=== PATIENT | female | born 1995 | race American Indian/Alaskan Native ===

== ENCOUNTER 2020-12-07 10:26 | Emergency (ER) | payer MEDICAID ==
--- NOTE | 2020-12-07 11:03 | Event Note ---
ED Screening Note Date of service: 12/07/20 Time: 11:03 ED Screening Note: [id number] vaginal bleeding yesterday. 7 weeks , no ultrasound during . This initial assessment/diagnostic orders/clinical plan/treatment(s) is/are subject to change based on patients health status, clinical progression and re- assessment by fellow clinical providers in the ED. Further treatment and workup at subsequent clinical providers discretion. Patient/guardian urged not to elope from the ED as their condition may be serious if not clinically assessed and managed. Initial orders include: cbc, HCG quant, urinalysis, transvaginal ultrasound.
[2020-12-07 12:17] LABS: Bilirubin,Urine NEG (Negative); Blood,Urine MOD (Negative); Color,Urine Yellow (Yellow); Mucus,Urine 3+ /HPF
--- NOTE | 2020-12-07 12:26 | Ultrasound Report ---
ULTRASOUND OBSTETRIC INDICATION: 7 weeks with vaginal bleeding. TECHNIQUE: Transvaginal. COMPARISON: None available. FINDINGS: GESTATIONAL SAC: Well-defined oval shape and intrauterine in location. YOLK SAC: No significant abnormality. EMBRYO/FETUS: No significant abnormality. - [place]-Rump Length = 0.6 cm = 6 weeks, 3 day(s). - Heart Rate = 121 beats per minute. ADNEXA: No significant abnormality. FREE FLUID: Small amount along the cul-de-sac. ADDITIONAL FINDINGS: An area of probable subchorionic hemorrhage is seen immediately adjacent to the gestational sac measuring 1.3 x 1.2 x 0.3 cm. Along the lower uterine segment there is distention of the endometrial canal by hyperechoic contents, likely representing blood products. IMPRESSION: 1. Single, living intrauterine with estimated sonographic age of 6 weeks, 6 3 day(s). 2. Subchorionic hemorrhage as above with additional probable blood products along the lower uterine s egment endometrial canal. Signer Name: Kameron Canela MD Signed: 12/07/2020 12:22 PM Workstation Name: [id number]
--- NOTE | 2020-12-07 12:26 | Ultrasound Report ---
ULTRASOUND OBSTETRIC INDICATION: 7 weeks with vaginal bleeding. TECHNIQUE: Transvaginal. COMPARISON: None available. FINDINGS: GESTATIONAL SAC: Well-defined oval shape and intrauterine in location. YOLK SAC: No significant abnormality. EMBRYO/FETUS: No significant abnormality. - [place]-Rump Length = 0.6 cm = 6 weeks, 3 day(s). - Heart Rate = 121 beats per minute. ADNEXA: No significant abnormality. FREE FLUID: Small amount along the cul-de-sac. ADDITIONAL FINDINGS: An area of probable subchorionic hemorrhage is seen immediately adjacent to the gestational sac measuring 1.3 x 1.2 x 0.3 cm. Along the lower uterine segment there is distention of the endometrial canal by hyperechoic contents, likely representing blood products. IMPRESSION: 1. Single, living intrauterine with estimated sonographic age of 6 weeks, 6 3 day(s). 2. Subchorionic hemorrhage as above with additional probable blood products along the lower uterine s egment endometrial canal. Signer Name: Kameron Canela MD Signed: 12/07/2020 12:22 PM Workstation Name: [id number]
[2020-12-07 12:32] LABS: Basophils % (Auto) 0.7 % (0.0-1.8); Eosinophils # (Auto) 0.1 K/mm3 (0.0-0.4); Eosinophils % (Auto) 0.9 % (0.0-4.3); Hematocrit 39.2 % (30.3-42.9); Hemoglobin 13.3 gm/dl (10.1-14.3); Lymphocytes # (Auto) 2.5 K/mm3 (1.2-5.4); Lymphocytes % (Auto) 44.9 % (13.4-35.0); Mean Corpuscular HGB Conc 34 % (30-34); Mean Corpuscular Volume 84 fl (79-97); Monocytes # (Auto) 0.6 K/mm3 (0.0-0.8); Monocytes % (Auto) 11.7 % (0.0-7.3); Platelet Count 217 K/mm3 (140-440); Red Blood Count 4.65 M/mm3 (3.65-5.03); Red Cell Distribution Width 13.2 % (13.2-15.2)
--- NOTE | 2020-12-07 12:40 | Emergency Department Report ---
ED General Adult HPI - General Chief complaint: Vaginal Bleeding Stated complaint: 7 WKS /BLEEDING Time Seen by Provider: 12/07/20 12:32 Source: patient Mode of arrival: Ambulatory Limitations: No Limitations - History of Present Illness Initial comments: Patient is a 25-year-old female presenting with chief complaint of vaginal bleeding. She states that her last menstrual period was October 24 and she is approximately 7 weeks . She has not yet seen [facility] [facility]. She is a G2, P1. She states that last evening she had gradual onset of vaginal spotting which became heavier overnight and is now improving. Denies any pelvic/abdominal pa in, fevers, urinary complaints. Symptoms are mild to moderate, no alleviating or exacerbating factors. - Related Data Allergies Allergy/AdvReac Type Severity Reaction Status Date / Time No Known Allergies Allergy Unverified 12/07/20 10:27 ED Review of Systems ROS: Stated complaint: 7 WKS /BLEEDING Other details as noted in HPI Comment: All other systems reviewed and negative Genitourinary: as per HPI ED Past Medical Hx - Past Medical History Previous Medical History?: No - Surgical History Past Surgical History?: No - Social History Smoking Status: Never Smoker Substance Use Type: None ED Physical Exam - General Limitations: No Limitations General appearance: alert, in no apparent distress - Head Head exam: Present: atraumatic, normocephalic - Eye Eye exam: Present: normal appearance - ENT ENT exam: Present: mucous membranes moist - Neck Neck exam: Present: normal inspection - Respiratory Respiratory exam: Present: normal lung sounds bilaterally. Absent: respiratory distress - Cardiovascular Cardiovascular Exam: Present: regular rate, normal rhythm. Absent: systolic murmur, diastolic murmur, rubs, gallop - GI/Abdominal GI/Abdominal exam: Present: soft, normal bowel sounds. Absent: distended, tend erness - Extremities Exam Extremities exam: Present: normal inspection - Back Exam Back exam: Present: normal inspection - Neurological Exam Neurological exam: Present: alert, oriented X3 - Psychiatric Psychiatric exam: Present: normal affect, normal mood - Skin Skin exam: Present: warm, dry, intact, normal color. Absent: rash ED Course Vital Signs 12/07/20 10:29 Temperature 98.4 F Pulse Rate 113 H Respiratory 19 Rate Blood Pressure 132/62 O2 Sat by Pulse 99 Oximetry ED Medical Decision Making - Lab Data Result diagrams: 12/07/20 11:43 - Radiology Data Radiology results: report reviewed Single viable intrauterine 6 weeks 6 days, subchorionic bleed - Medical Decision Making Patient presented with vaginal bleeding in early . Denies abdominal pain. Bleeding has improved at this time. Exam is normal. Labs obtained. Ultrasound shows single viable intrauterine with likely subchorionic bleed. Discussed findings with patient and recommend strict pelvic rest and close [employer] [facility] follow-up. Discussed return precautions. Patient is Rh-, RhoGam work-up ordered. - Differential Diagnosis Threatened miscarriage, miscarriage, ectopic Critical care attestation.: If time is entered above; I have spent that time in minutes in the direct care of this critically ill patient, excluding procedure time. ED Disposition Clinical Impression: Threatened miscarriage Subchorionic bleed Qualifiers: Fetus number: single or unspecified fetus Trimester: first trimester Qualified Code(s): O41.8X10 - Other specified disorders of amniotic fluid and membranes, first trimester, not applicable or unspecified Disposition: DC-01 TO HOME OR SELFCARE Is pt being admited?: No Condition: Good Instructions: Subchorionic Hematoma, Threatened Miscarriage Referrals: PRIMARY CARE, [Primary Care Provider] - 3-5 Days MO LOPEZ MD [Staff Physician] - 3-5 Days Time of Disposition: 13:45
[2020-12-07 16:49] VITALS: BP 132/76
== END 2020-12-07 14:45 | disposition home or self-care (01) ==
LOC: ED 10:26
DX: O20.0 Threatened abortion (principal); O20.8 Other hemorrhage in early pregnancy; Z3A.01 Less than 8 weeks gestation of pregnancy
CPT/HCPCS: 36415; 76801; 76817; 81001; 84702; 85025; 86850; 86900; 86901; 99284; J2790

== ENCOUNTER 2020-12-16 16:16 | Emergency (ER) | payer MEDICAID ==
[2020-12-16] MEDS ORDERED: SODIUM CHLORIDE 0.9% 1000 ML 1,000 ML IV ONE ×2 (18:13→21:44)
[2020-12-16 19:24] LABS: Alanine Aminotransferase 130 units/L (7-56); Albumin 4.7 g/dL (3.9-5); BUN/Creatinine Ratio 15; Blood Urea Nitrogen 12 mg/dL (7-17); Calcium 9.7 mg/dL (8.4-10.2); Hemolysis Index 3
[2020-12-16 19:28] LABS: Basophils % (Auto) 0.6 % (0.0-1.8); Eosinophils # (Auto) 0.1 K/mm3 (0.0-0.4); Eosinophils % (Auto) 0.9 % (0.0-4.3); Hematocrit 42.8 % (30.3-42.9); Hemoglobin 14.5 gm/dl (10.1-14.3); Lymphocytes # (Auto) 3.2 K/mm3 (1.2-5.4); Lymphocytes % (Auto) 45.5 % (13.4-35.0); Mean Corpuscular HGB Conc 34 % (30-34); Mean Corpuscular Volume 85 fl (79-97); Monocytes # (Auto) 0.8 K/mm3 (0.0-0.8); Monocytes % (Auto) 11.1 % (0.0-7.3); Platelet Count 235 K/mm3 (140-440); Red Blood Count 5.04 M/mm3 (3.65-5.03); Red Cell Distribution Width 12.7 % (13.2-15.2)
[2020-12-16 19:28] LABS: Bacteria,Urine 1+ /HPF (Negative); Bilirubin,Urine SM (Negative); Blood,Urine MOD (Negative); Color,Urine Amber (Yellow); Granular Casts,Urine 1 /LPF; Ictotest,Urine Positive (Negative); Mucus,Urine 3+ /HPF
--- NOTE | 2020-12-16 20:57 | Event Note ---
ED Screening Note Date of service: 12/16/20 Time: 18:11 ED Screening Note: 25-year-old -[place] female who is 8 weeks and 2 para 1 presents to the emergency room for nausea and vomiting. Patient states she has not been able to hold any food down in a week. [facility] and was instructed to come to the emergency room. Patient has been diagnosed with hyperemesis gravidarum. This initial assessment/diagnostic orders/clinical plan/treatment(s) is/are subject to change based on patients health status, clinical progression and re- assessment by fellow clinical providers in the ED. Further treatment and workup at subsequent clinical providers discretion. Patient/guardian urged not to elope from the ED as their condition may be serious if not clinically assessed and managed. Initial orders include:
[2020-12-16] MEDS ORDERED: ONDANSETRON 4 MG/2 ML INJ IV ONE (21:08)
--- NOTE | 2020-12-16 21:18 | Emergency Department Report ---
Vomiting/Diarrhea - HPI Chief Complaint: Nausea/Vomiting/Diarrhea Stated Complaint: UNABLE TO EAT OR DRINK, 8 WKS PREG Duration: 1 week Severity: moderate Nausea/Vomiting Severity: Moderate Diarrhea Severity: None Pain Severity: None Symptoms: Yes Able to Tolerate Fluids, No Watery Diarrhea, No Bloody diarrhea, No Fever, No Recent Unusual Foods, No Recent Untreated Water, No Recent use of Antibiotics, No Family w/ Similar Symptoms, No Contacts w/ Similar Symptoms, No Rash, No Hematuria, No Recent URI Symptoms Other History: 25-year-old -[place] female who is 8 weeks and 2 para 1 presents to the emergency room for nausea and vomiting. Patient states she has not been able to hold any food down in a week. Patient is followed by [facility] and was instructed to come to the emergency room. Patient has been diagnosed with hyperemesis gravidarum. ED Review of Systems ROS: Stated complaint: UNABLE TO EAT OR DRINK, 8 WKS PREG Other details as noted in HPI Comment: All other systems reviewed and negative ED Past Medical Hx - Past Medical History Previous Medical History?: No - Surgical History Past Surgical History?: No - Social History Smoking Status: Never Smoker Substance Use Type: None - Medications Home Medications: Home Medications Medication Instructions Recorded Confirmed Last Taken Type Doxylamine Succinate/Vit B6 2 each PO QHS #30 tablet. 12/16/20 Unknown Rx [Dong Dumont 10-10 mg Tablet] Abby Root 550 mg PO BID #30 capsule 12/16/20 Unknown Rx Vomiting Diarrhea Exam - Exam General: Vital signs noted. No distress. Alert and acting appropriately. HEENT: Yes Moist Mucous Membranes, No Pharyngeal Erythema, No Pharyngeal Exudates, No Rhinorrhea, No Conjuctival Injection, No Frontal Tenderness, No Maxillary Tenderness Neck: No Adenopathy, No Rigidity Lungs: Yes Clear Lung Sounds, Yes Good Air Exchange, No Wheezes, No Stridor, No Cough, No Nasal Flaring, No Retractions, No Use of Accessory Muscles Heart exam: Regular: Yes, Murmur: No, Tachycardia: No Abdomen: Tenderness: No, Peritoneal Signs: No, Distention: No, Hyperactive Bowel sounds: No Skin exam: Rash: No, Edema: No, Normal turgor: Yes Neurologic: Alert and oriented, no deficits. Musculoskeletal: Unremarkable. ED Course Vital Signs 12/16/20 16:39 Temperature 99.3 F Pulse Rate 116 H Respiratory 18 Rate Blood Pressure 118/85 O2 Sat by Pulse 97 Oximetry ED Medical Decision Making - Lab Data Result diagrams: 12/16/20 18:27 12/16/20 18:27 - Medical Decision Making 25-year-old -[place] female who is 8 weeks and 2 para 1 presents to the emergency room for nausea and vomiting. Patient states she has not been able to hold any food down in a week. Patient is followed by [facility] and was instructed to come to the emergency room. Patient has been diagnosed with hyperemesis gravidarum. Normal saline and IV Zofran 4 mg have been ordered. Labs ordered. Critical care attestation.: If time is entered above; I have spent that time in minutes in the direct care of this critically ill patient, excluding procedure time. ED Disposition Clinical Impression: Hyperemesis gravidarum Disposition: TO HOME OR SELFCARE Is pt being admited?: No Does the pt Need Aspirin: No Condition: Stable Instructions: Hyperemesis Gravidarum Additional Instructions: Please take medication for the nausea and vomiting. Follow-up with your [facility]. Prescriptions: Doxylamine Succinate/Vit B6 [Dong Dumont 10-10 mg Tablet] 2 each PO QHS #30 tablet.dr Abby Solorio 550 mg PO BID #30 capsule Referrals: PRIMARY CARE, [Primary Care Provider] - 3-5 Days You are, [facility] [employer] [facility] [Other] - 3-5 Days [facility] [Provider Group] - 3-5 Days
[2020-12-16 23:01] VITALS: BP 126/71
== END 2020-12-16 18:00 | disposition home or self-care (01) ==
LOC: ED 16:16
DX: O21.0 Mild hyperemesis gravidarum (principal); Z79.899 Other long term (current) drug therapy
CPT/HCPCS: 36415; 80053; 81001; 83690; 85025; 96361; 96374; 99283; J2405; J7030